=== PATIENT | female | born 1945 | race Caucasian/White ===

== ENCOUNTER → 2016-08-25 10:16 | Emergency (ER) | payer MEDICARE ==
[~2016-08-25 10:16] MED LIST: Labetalol IV* 5 MG/ML 20 ML VIAL IV PUSH ONE; Meclizine TAB* 12.5 MG PO ONE; Ondansetron ODT TAB* 4 MG PO ONE
[2016-08-25 12:09] LABS: Hematocrit 46 % (35-47); Hemoglobin 15.2 g/dl (12.0-16.0); Mean Corpuscular HGB Conc 33 g/dl (31-36); Mean Corpuscular Hemoglobin 29 pg (27-31); Mean Corpuscular Volume 88 fL (80-97); Mean Platelet Volume 7 um3 (7.4-10.4); Red Blood Count 5.27 10^6/ul (4.0-5.4); Red Cell Distribution Width 14 % (10.5-15); White Blood Count 6.3 10^3/ul (3.5-10.8)
--- NOTE | 2016-08-25 12:09 | RAD ---
HISTORY: Dizziness COMPARISONS: January 11, 2015 TECHNIQUE: Multiple contiguous axial CT scans were obtained of the head without intravenous contrast. FINDINGS: HEMORRHAGE/INFARCT: There is no hemorrhage or acute infarct. MASSES/SHIFT: There is no mass or shift. EXTRA-AXIAL SPACES: There are no extra-axial fluid collections. SULCI AND VENTRICLES: The sulci and ventricles are normal in size and position for the patient's stated age. CEREBRUM: There are no focal parenchymal abnormalities. BRAINSTEM: There are no focal parenchymal abnormalities. CEREBELLUM: There are no focal parenchymal abnormalities. VESSELS: The vessels are grossly normal. PARANASAL SINUSES: The paranasal sinuses are clear. ORBITS: The orbits are unremarkable. BONES AND SOFT TISSUE: No bone or soft tissue abnormalities are noted. OTHER: None IMPRESSION: NO ACUTE INTRACRANIAL PATHOLOGY.
--- NOTE | 2016-08-25 12:19 | RAD ---
HISTORY: Dizziness COMPARISONS: None relevant VIEWS: 2: Frontal and lateral views of the chest. FINDINGS: CARDIOMEDIASTINAL SILHOUETTE: The cardiomediastinal silhouette is normal. NICOLAS: The nicolas are normal. PLEURA: The costophrenic angles are sharp. No pleural abnormalities are noted. LUNG PARENCHYMA: The lungs are clear. ABDOMEN: The upper abdomen is clear. There is no subphrenic gas. BONES AND SOFT TISSUES: There is diffuse osteopenia. Degenerative changes are noted OTHER: None. IMPRESSION: NO ACTIVE CARDIOPULMONARY DISEASE.
[2016-08-25 12:28] LABS: Albumin 4.5 g/dL (3.2-5.2); BUN/Creatinine Ratio 21.4 (8-20); C Reactive Protein 9.02 mg/L (< 5.00); Calcium 9.6 mg/dL (8.6-10.3); EGFR African American 71.7 (>60); EGFR Non-African American 55.8 (>60); Globulin 3.4 g/dL (2-4); Magnesium 2.2 mg/dL (1.9-2.7); Potassium 3.8 mmol/L (3.5-5.0); Total Bilirubin 0.5 mg/dL (0.2-1.0); Total Protein 7.9 g/dL (6.4-8.9)
[2016-08-25 12:42] LABS: TSH (Thyroid Stimulating Horm) 1.69 mcIU/mL (0.34-5.60)
[2016-08-25 13:44] VITALS: BP 120/73
--- NOTE | 2016-08-25 16:06 | ED ---
Heladio Allison Billy, scribed for Braxton Recinos MD on 08/25/16 at 1145 . Dizziness - HPI Summary HPI Summary: Patient is a 71 year-old female coming to [facility] for evaluation of room-spinning dizziness after she woke up this morning. Her symptoms are worse with any change in head position; she feels nauseated with any head motion. Denies any headache, neck pain, fevers, chills, blurred vision, chest pain, or palpitations. She had a similar earlier episode this week which resolved spontaneously. She also reports that she has been fighting off a sinus infection for the last several weeks. She did not take her morning blood pressure medications today secondary to the nausea and vomiting. - History Of Current Complaint Chief Complaint: EDDizziness Stated Complaint: DIZZY/NAUSEA Time Seen by Provider: 08/25/16 11:17 Hx Obtained From: Patient Onset/Duration: Gradually Timing: Constant Severity Initially: Moderate Severity Currently: Moderate Character: Room Spinning, Dizzy Aggravating Factor(s): Change In Head Position Alleviating Factor(s): Rest, Lying Down Associated Signs And Symptoms: Positive: Nausea, Vomiting. Negative: Chest Pain , SOB, Visual Changes, Fever, Chills - Allergies/Home Medications Allergies/Adverse Reactions: Allergies Allergy/AdvReac Type Severity Reaction Status Date / Time Sulfa Antibiotics Allergy Hives Verified 08/25/16 10:27 PMH/Surg Hx/FS Hx/Imm Hx Endocrine/Hematology History: Reports: Hx Thyroid Disease - HX THYROID CA Cardiovascular History: Reports: Hx Hypertension GI History: Reports: Other GI Disorders - HX DIVERTICULITIS Musculoskeletal History: Denies: Hx Osteoporosis Sensory History: Reports: Hx Cataracts - BILAT, Hx Contacts or Glasses - GLASSES Denies: Hx Hearing Aid Opthamlomology History: Reports: Hx Cataracts - BILAT, Hx Contacts or Glasses - GLASSES - Cancer History Cancer Type, Location and Year: THYROID 2005 OR 2006 Hx Chemotherapy: Yes - THYROID Hx Radiation Therapy: No - Surgical History Surgery Procedure, Year, and Place: HYSTERECTOMY; APPENDECTOMY; CHOLECYSTECTOMY 2008; PARTIAL COLECTOMY W/ COLOSTOMY AND REVERSAL; EXPLORATORY OF ABDOMEN Hx Anesthesia Reactions: No Infectious Disease History: No Infectious Disease History: Denies: Traveled Outside the [place] in Last 30 Days - Family History Known Family History: Positive: Cardiac Disease, Hypertension, Diabetes - Social History Alcohol Use: Occasionally Substance Use Type: Reports: None Smoking Status (MU): Never Smoked Tobacco Review of Systems Negative: Fever, Chills Negative: Blurred Vision ENT: Other - sinus discomfort Negative: Palpitations, Chest Pain Positive: Vomiting, Nausea Neurological: Other - dizziness Negative: Headache All Other Systems Reviewed And Are Negative: Yes Physical Exam - Summary Physical Exam Summary: VITAL SIGNS: Reviewed. GENERAL: Patient is a well-developed and nourished female who is lying comfortable in the stretcher. Patient is not in any acute respiratory distress. HEAD AND FACE: No signs of trauma. No ecchymosis, hematomas or skull depressions. No sinus tenderness. EYES: PERRLA, EOMI x 2, No injected conjunctiva, no nystagmus. No photophobia. EARS: Hearing grossly intact. Ear canals and tympanic membranes are within normal limits. MOUTH: Oropharynx within normal limits. NECK: Supple, trachea is midline, no adenopathy, no JVD, no carotid bruit, no c- spine tenderness, neck with full ROM. No meningeal signs, no Kernig's or brudzinskis signs. CHEST: Symmetric, no tenderness at palpation LUNGS: Clear to auscultation bilaterally. No wheezing or crackles. CVS: Regular rate and rhythm, S1 and S2 present, no murmurs or gallops appreciated. ABDOMEN: Soft, non-tender. No signs of distention. No rebound no guarding, and no masses palpated. Bowel sounds are normal. EXTREMITIES: FROM in all major joints, no edema, no cyanosis or clubbing. NEURO: Alert and oriented x 3. No acute neurological deficits. Speech is normal and follows commands. SKIN: Dry and warm Triage Information Reviewed: Yes Vital Signs On Initial Exam: Initial Vitals Temp Pulse Resp BP Pulse Ox 97.5 F 95 18 192/99 100 08/25/16 10:28 08/25/16 10:28 08/25/16 10:28 08/25/16 10:28 08/25/16 10:28 Vital Signs Reviewed: Yes - Edwige Coma Scale Coma Scale Total: 15 Diagnostics - Vital Signs Vital Signs Temp Pulse Resp BP Pulse Ox 08/25/16 11:12 71 16 08/25/16 10:28 97.5 F 95 18 192/99 100 - Laboratory Lab Results: Lab Results 08/25/16 08/25/16 08/25/16 Range/Units 11:58 11:58 11:58 WBC 6.3 (3.5-10.8) 10^3/ul RBC 5.27 (4.0-5.4) 10^6/ul Hgb 15.2 (12.0-16.0) g/dl Hct 46 (35-47) % MCV 88 (80-97) fL MCH 29 (27-31) pg MCHC 33 (31-36) g/dl RDW 14 (10.5-15) % Plt Count 197 (150-450) 10^3/ul MPV 7 L (7.4-10.4) um3 Neut % (Auto) 67.2 (38-83) % Lymph % (Auto) 25.0 (25-47) % Lincoln % (Auto) 5.2 (1-9) % Eos % (Auto) 1.8 (0-6) % Baso % (Auto) 0.8 (0-2) % Absolute Neuts (auto) 4.3 (1.5-7.7) 10^3/ul Absolute Lymphs (auto) 1.6 (1.0-4.8) 10^3/ul Absolute Monos (auto) 0.3 (0-0.8) 10^3/ul Absolute Eos (auto) 0.1 (0-0.6) 10^3/ul Absolute Basos (auto) 0 (0-0.2) 10^3/ul Absolute Nucleated RBC 0.01 10^3/ul Nucleated RBC % 0.2 INR (Anticoag Therapy) 1.04 (0.89-1.11) Sodium 138 (133-145) mmol/L Potassium 3.8 (3.5-5.0) mmol/L Chloride 104 (101-111) mmol/L Carbon Dioxide 25 (22-32) mmol/L Anion Gap 9 (2-11) mmol/L BUN 21 (6-24) mg/dL Creatinine 0.98 H (0.51-0.95) mg/dL Est GFR ( Amer) 71.7 (>60) Est GFR (Non-Af Amer) 55.8 (>60) BUN/Creatinine Ratio 21.4 H (8-20) Glucose 100 (70-100) mg/dL Lactic Acid (0.5-2.0) mmol/L Calcium 9.6 (8.6-10.3) mg/dL Magnesium 2.2 (1.9-2.7) mg/dL Total Bilirubin 0.50 (0.2-1.0) mg/dL AST 21 (13-39) U/L ALT 20 (7-52) U/L Alkaline Phosphatase 54 (34-104) U/L Total Creatine Kinase 145 (10-223) U/L Troponin I 0.00 (<0.04) ng/mL C-Reactive Protein 9.02 H (< 5.00) mg/L B-Natriuretic Peptide ( - 100) pg/mL Total Protein 7.9 (6.4-8.9) g/dL Albumin 4.5 (3.2-5.2) g/dL Globulin 3.4 (2-4) g/dL Albumin/Globulin Ratio 1.3 (1-3) TSH 1.69 (0.34-5.60) mcIU/mL 08/25/16 08/25/16 Range/Units 11:58 11:58 WBC (3.5-10.8) 10^3/ul RBC (4.0-5.4) 10^6/ul Hgb (12.0-16.0) g/dl Hct (35-47) % MCV (80-97) fL MCH (27-31) pg MCHC (31-36) g/dl RDW (10.5-15) % Plt Count (150-450) 10^3/ul MPV (7.4-10.4) um3 Neut % (Auto) (38-83) % Lymph % (Auto) (25-47) % Lincoln % (Auto) (1-9) % Eos % (Auto) (0-6) % Baso % (Auto) (0-2) % Absolute Neuts (auto) (1.5-7.7) 10^3/ul Absolute Lymphs (auto) (1.0-4.8) 10^3/ul Absolute Monos (auto) (0-0.8) 10^3/ul Absolute Eos (auto) (0-0.6) 10^3/ul Absolute Basos (auto) (0-0.2) 10^3/ul Absolute Nucleated RBC 10^3/ul Nucleated RBC % INR (Anticoag Therapy) (0.89-1.11) Sodium (133-145) mmol/L Potassium (3.5-5.0) mmol/L Chloride (101-111) mmol/L Carbon Dioxide (22-32) mmol/L Anion Gap (2-11) mmol/L BUN (6-24) mg/dL Creatinine (0.51-0.95) mg/dL Est GFR ( Amer) (>60) Est GFR (Non-Af Amer) (>60) BUN/Creatinine Ratio (8-20) Glucose (70-100) mg/dL Lactic Acid 1.0 (0.5-2.0) mmol/L Calcium (8.6-10.3) mg/dL Magnesium (1.9-2.7) mg/dL Total Bilirubin (0.2-1.0) mg/dL AST (13-39) U/L ALT (7-52) U/L Alkaline Phosphatase (34-104) U/L Total Creatine Kinase (10-223) U/L Troponin I (<0.04) ng/mL C-Reactive Protein (< 5.00) mg/L B-Natriuretic Peptide 88 ( - 100) pg/mL Total Protein (6.4-8.9) g/dL Albumin (3.2-5.2) g/dL Globulin (2-4) g/dL Albumin/Globulin Ratio (1-3) TSH (0.34-5.60) mcIU/mL Result Diagrams: 08/25/16 11:58 08/25/16 11:58 Lab Statement: Any lab studies that have been ordered have been reviewed, and results considered in the medical decision making process. - Radiology CXR Xray Interpretation: No Acute Changes Radiology Interpretation Completed By: Radiologist - CT Brain CT Interpretation: No Acute Changes CT Interpretation Completed By: Radiologist - EKG 1037 EKG Interpretation: NSR 95 bpm, no STEMI Re-Evaluation - Re-Evaluation First Eval Re-Evaluation Time: 13:41 Change: Improved Comment: She has no complaints at this time and feels much better. We will ambulate the patient, disposition pending. Dizzy Course/Dx - Course Assessment/Plan: Patient is a 71 year-old female coming to [facility] for evaluation of room-spinning dizziness after she woke up this morning. Her symptoms are worse with any change in head position; she feels nauseated with any head motion. Denies any headache, neck pain, fevers, chills, blurred vision, chest pain, or palpitations. She had a similar earlier episode this week which resolved spontaneously. She also reports that she has been fighting off a sinus infection for the last several weeks. She did not take her morning blood pressure medications today secondary to the nausea and vomiting. Test results WNL except for CRP of 9.02. CXR and CT brain show no acute pathology. In the ED course, the patient was hydrated with IV fluids, she was given Zofran for nausea , and she was given Antivert for the dizziness. After these medications, her symptoms had resolved. She is ambulating with a good, steady gait and the dizziness has resolved. Therefore the patient may be dealing with vertigo. The patient has a history of sinusitis several weeks ago. Therefore the patient will be discharged home to follow up with PCP. The patient is hemodynamically stable, A&Ox3. I discussed all the findings and test results with the patient. Patient was instructed to return to the emergency room immediately if any of the symptoms return or worsens. Patient understands and agrees. Plan of care was discussed with the patient and patient understands and agrees with the plan of care. All questions were answered at patient satisfaction. There were no further complaints or concerns. Patient is alert and oriented x 3. Patient vital signs are stable. Patient is to follow up with primary care physician in the next 2 to 3 days. Patient understands and agrees. - Diagnoses Differential Diagnosis/HQI/PQRI: Meniere's Disease Provider Diagnoses: Vertigo Discharge - Discharge Plan Condition: Stable Disposition: HOME Prescriptions: Meclizine TAB* [Antivert 12.5 TAB*] 25 mg PO TID PRN #30 tab PRN Reason: Vertigo Patient Education Materials: Vertigo (ED) Referrals: Gem Pimentel MD [Primary Care Provider] - The documentation as recorded by the Heladio chris Billy accurately reflects the service I personally performed and the decisions made by ri, Braxton Recinos MD.
== END | disposition home or self-care (01) ==
LOC: ED 10:16
DX: R11.2 Nausea with vomiting, unspecified (principal); R42 Dizziness and giddiness
CPT/HCPCS: 36415; 70450; 71020; 80053; 82550; 83605; 83735; 83880; 84443; 84484; 85025; 85610; 86140; 93005; 96374; 99283; A9270-GY